=== PATIENT | male | born 1945 | race Caucasian/White ===

== ENCOUNTER 2021-05-10 05:55 | Day surgery (SDC) | payer OTHER ==
[~2021-05-10 05:55] MED LIST: AMLODI PO; ATACAND32 MG PO; BISOPROLOL-HCT1 EAC2 PO; CRESTOR5 MG PO; FORTAMET1000 MG PO; GLIMEPIRIDE2 M1 PO; ISOSORBIDE DINI30 MG PO; LANOXIN125 MCG PO; LEVOTHYROXINE88 MC1 PO; MELATONIN3 M1 PO; TRIJARDY XR 121 EACH PO
== END 2021-05-10 11:40 | disposition home or self-care (01) ==
LOC: CIR.AMB 05:55
PROVIDERS: ATTEND Orthopaedic Surgery
DX: M75.121 Complete rotator cuff tear or rupture of right shoulder, not specified as traumatic (principal); M75.21 Bicipital tendinitis, right shoulder; Z20.822 Contact with and (suspected) exposure to COVID-19